=== PATIENT | male | born 1970 | race Caucasian/White ===

== ENCOUNTER → 2016-07-28 | Outpatient (CLI) | payer OTHER ==
[~2016-07-28] MED LIST: ASA325 MG PO; COLACE-DPS100 MG PO; GLUCOPHAGE-DPS500 MG PO; LOPRESSOR DPS50 MG PO; MAALOX DPS30 ML PO; MEVACOR40 MG PO; TOPROL XL DPS50 MG PO; TYLENOL DPS325 MG PO; ZESTRIL DPS20 MG PO; ZOCOR80 MG PO
== END | disposition home or self-care (01) ==
LOC: PTH.S 05-28 13:45
DX: I63.9 Cerebral infarction, unspecified (principal); E11.9 Type 2 diabetes mellitus without complications

== ENCOUNTER → 2016-09-21 | Outpatient (CLI) | payer OTHER | END | disposition home or self-care (01) | LOC: PTH.S 08-17 14:45 | DX: I10 Essential (primary) hypertension (principal); E11.9 Type 2 diabetes mellitus without complications ==